=== PATIENT | male | born 1995 | race Caucasian/White ===

== ENCOUNTER 2018-06-19 09:25 | Emergency (ER) | payer OTHER, SELFPAY ==
[2018-06-19] MEDS ORDERED: Ondansetron PF 4 MG/2 ML Vial ONE (09:34)
[2018-06-19 09:58] LABS: #Basophils 0.1 thou/uL (0.0-0.2); #Eosinphils 0.3 thou/uL (0.0-0.7); #Lymphocytes 2.9 thou/uL (1.20-3.40); #Monocytes 0.7 thou/uL (0.11-0.59); #Neutrophils 6.4 thou/uL (1.40-6.50); %Basophils 1.2 % (0.0-1.0); %Eosinophils 3.2 % (0.0-10.0); %Lymphocytes 27.9 % (21.0-51.0); %Monocytes 6.4 % (0.0-10.0); %Neutrophils 61.2 % (42.0-75.0); Hemoglobin 15.4 g/dL (14.0-18.0); Mean Corpuscular HGB CONC 32.6 g/dL (32.0-36.0); Mean Corpuscular Hemoglobin 30.7 pg (27.0-31.0); Mean Corpuscular Volume 94.2 fL (78.0-98.0); Mean Platelet Volume 6.3 fL (7.4-10.4); Platelet Count 442 thou/uL (130-400); RBC Distribution Width 11.8 % (11.5-14.5); Red Blood Cell (RBC) Count 5.01 mill/uL (4.70-6.10); White Blood Cell (WBC) Count 10.5 thou/uL (4.8-10.8)
[2018-06-19 10:13] LABS: ALT (SGPT) 17 U/L (8-55); AST (SGOT) 17 U/L (5-34); Albumin 4.8 g/dL (3.5-5.0); Alkaline Phosphatase 77 U/L (40-150); Anion Gap 14 mmol/L (10-20); BUN (Urea Nitrogen) 12 mg/dL (8.9-20.6); Bilirubin, Total 0.4 mg/dL (0.2-1.2); Calc. Creatinine Clearance 0 mL/min (70-130); Calcium 10.1 mg/dL (7.8-10.44); Carbon Dioxide 25 mmol/L (22-29); Chloride 104 mmol/L (98-107); Estimated GFR-MDRD 70; Globulin 3.6 g/dL (2.4-3.5); Glucose 109 mg/dL (70-105); Lipase 43 U/L (8-78); Potassium 3.3 mmol/L (3.5-5.1); Protein, Total 8.4 g/dL (6.0-8.3); Sodium 140 mmol/L (136-145)
[2018-06-19] MEDS ORDERED: Promethazine HCl 25 MG/ML VIAL ONE (10:21)
[2018-06-19 10:38] LABS: Bilirubin Small (Negative); Blood, Urine Negative (Negative); Clarity CLEAR (Clear); Glucose, Urine (Dipstick) Negative (Negative); Leukocyte Negative (Negative); Nitrite Negative (Negative); Protein, Urine (Dipstick) Trace mg/dL (Neg-Trace); Specific Gravity, Urine 1.027 (1.002-1.036); Urobilinogen 0.2 mg/dL (0.2-1.0)
== END 2018-06-19 12:00 | disposition home or self-care (01) ==
LOC: ERS 09:25
DX: F12.188 Cannabis abuse with other cannabis-induced disorder (principal)
CPT/HCPCS: 80053; 81003; 83690; 85025; 96361; 96374; 96375; J2405; J2550

== ENCOUNTER 2018-06-19 22:04 | Emergency (ER) | payer OTHER, SELFPAY ==
[~2018-06-19 22:04] MED LIST: ISOVUE-370 76%-LOCM 1 ML ONE
[2018-06-19] MEDS ORDERED: Metoclopramide HCl 10 MG/2 ML VIAL ONE (23:18)
--- NOTE | 2018-06-19 23:51 | CT ---
CONTRAST ENHANCED CT ABDOMEN AND PELVIS 06/06 11/21 HISTORY: 22-year-old presents with a history of lower abdominal pain. Contrast enhanced CT images of the abdomen and pelvis is obtained. The lung bases are unremarkable. No evidence of free intraperitoneal air seen. The liver and spleen are unremarkable. The pancreas is unremarkable. Gallbladder and adrenal glands a re unremarkable. The kidneys are within normal limits. No dilated loops of small bowel seen. The appendix is thought to be visualized and does not appear to be inflamed. However, I cannot defini tively visualize the appendix without benefit of oral contrast. Adrenal glands and kidneys are unremarkable. No evidence of periaortic lymphadenopathy seen. No definite evidence of bowel obstruction seen. IMPRESSION: Unremarkable contrast enhanced CT of the abdomen. The appendix definitively was not visualized withou t oral contrast. POS: [facility]
== END 2018-06-20 00:27 | disposition home or self-care (01) ==
LOC: ERS 22:04
DX: R10.30 Lower abdominal pain, unspecified (principal)
CPT/HCPCS: 74177; 96365; J2765

== ENCOUNTER 2018-10-30 11:00 | Day surgery (SDC) | payer OTHER ==
[2018-10-29 10:35] VITALS: BMI 24.4
--- NOTE | 2018-10-29 13:58 | HP ---
HISTORY OF PRESENT ILLNESS: This is a 22-year-old male, comes with GI symptoms over the years. The symptoms consist of abdominal bloating, abdominal discomfort, His abdominal pain is mild. No nausea and no vomiting. The patient comes for EGD for chronic dyspepsia. ALLERGIES: NONE. SOCIAL HISTORY: The patient smokes marijuana every day. No alcohol intake. MEDICAL ILLNESSES: History of seasonal allergies and also asthma in the past. PHYSICAL EXAMINATION: GENERAL: Appears comfortable. VITAL SIGNS: Pulse is 70, blood pressure 130/70. Conjunctivae clear. CARDIOVASCULAR SYSTEM: First and second heart sounds heard. LUNGS: Clear to auscultation. ABDOMEN: Soft. No organomegaly. Abdomen is mildly tender over the epigastric area. There is no rebound or guarding. Bowel sounds are normal. ADMITTING DIAGNOSIS: Chronic dyspepsia. PLAN: EGD. Job ID: [id number]
[2018-10-30] MEDS ORDERED: Fentanyl 100 MCG/2 ML VIAL ONE (14:46)
--- NOTE | 2018-10-30 18:21 | OP ---
DATE OF PROCEDURE: 10/30/2018 PROCEDURE PERFORMED: Esophagogastroduodenoscopy with biopsy. PREOPERATIVE DIAGNOSES: Abdominal pain, dyspepsia, which is chronic in nature. The patient underwent an esophagogastroduodenoscopy. POSTOPERATIVE DIAGNOSIS: Normal esophagogastroduodenoscopy. Biopsy of the descending duodenum and also the gastric antrum and gastric body. DESCRIPTION OF PROCEDURE: The patient was placed on his left lateral position and was given sedation by Anesthesia Department. A [employer] video gastroscope under direct vision passed down the oropharynx, past the GE junction into the stomach and subsequently into the descending duodenum. The vocal cords appeared healthy. The mucosa of the esophagus appeared normal throughout. There was no esophagitis seen. The GE junction, no pathology seen. Retroflexion of scope in the stomach showed no pathology in the fundus or cardia. The gastric body, gastric antrum, incisura angularis, no pathology seen. The scope was advanced into the duodenal bulb, descending duodenum. No pathology seen. Biopsy obtained of the gastric antrum and gastric body and also from the descending duodenum. DISCHARGE PLAN: This is a 22-year-old male with chronic GI symptoms, came for EGD. He underwent EGD . He had biopsy of his duodenum and also stomach. DISCHARGE RECOMMENDATION: 1. We will start patient on Bentyl 10 mg p.o. 3 times a day. 2. Await gastric biopsy and make further recommendations. Job ID: [id number]
== END 2018-10-30 16:07 | disposition home or self-care (01) ==
LOC: SDC 11:00
PROVIDERS: ATTEND Internal Medicine Gastroenterology
PROC: 0DB98ZX Excision of Duodenum, Via Natural or Artificial Opening Endoscopic, Diagnostic (ICD-10-PCS; principal; 2018-10-30)
PROC: 0DB78ZX Excision of Stomach, Pylorus, Via Natural or Artificial Opening Endoscopic, Diagnostic (ICD-10-PCS; principal; 2018-10-30)
DX: K29.50 Unspecified chronic gastritis without bleeding (principal); B96.81 Helicobacter pylori [H. pylori] as the cause of diseases classified elsewhere; J45.909 Unspecified asthma, uncomplicated; Z79.899 Other long term (current) drug therapy
CPT/HCPCS: 88305; 88312; J3010

== ENCOUNTER 2019-03-26 08:34 | Outpatient (CLI) | payer OTHER ==
--- NOTE | 2019-03-26 09:05 | RAD ---
Small bowel follow-through CLINICAL HISTORY: Abdominal pain, vomiting, evaluation for provided history of malrotation Enteric contrast was administered orally, and subsequent radiographic imaging was acquired. The contr ast traversed the small bowel and into colon by 1 hour, 30 minutes. There are appropriate mucosal folds of the small bowel, and normal small bowel caliber is demonstrated, with transient areas of dis tention from passage of contrast. Spot imaging reveals no evidence of abnormal stricture of the small bowel. IMPRESSION: Small bowel transit time of between 1 and 1.5 hours . No acute sequela of small bowel malrotation. If there is need for evaluation of the exact location of ligamentum of Treitz, this could be performed with upper GI exam. Transcribed Date/Time: 03/26/2019 2:58 PM
== END 2019-03-26 08:35 | disposition home or self-care (01) ==
LOC: RAD 08:34
PROVIDERS: ATTEND Surgery
DX: Q43.3 Congenital malformations of intestinal fixation (principal)
CPT/HCPCS: 74250

== ENCOUNTER 2019-08-06 22:11 | Emergency (ER) | payer OTHER ==
[~2019-08-06 22:11] MED LIST changes: -ISOVUE-370 76%-LOCM 1 ML ONE; +Iopamidol-370 76% 500 ML 1 ML ONE
[2019-08-06] MEDS ORDERED: Ondansetron PF 4 MG/2 ML Vial ONE ×2 (22:48→23:29)
[2019-08-06] MEDS ORDERED: Dicyclomine 20 MG TAB ONE (22:48)
[2019-08-06 23:03] LABS: #Basophils 0.1 thou/uL (0.0-0.2); #Eosinphils 0.2 thou/uL (0.0-0.7); #Lymphocytes 2.6 thou/uL (1.20-3.40); #Monocytes 0.7 thou/uL (0.11-0.59); #Neutrophils 12.1 thou/uL (1.40-6.50); %Basophils 0.7 % (0.0-1.0); %Lymphocytes 16.7 % (21.0-51.0); %Monocytes 4.2 % (0.0-10.0); %Neutrophils 77.3 % (42.0-75.0); Hemoglobin 16.6 g/dL (14.0-18.0); Mean Corpuscular HGB CONC 33.9 g/dL (32.0-36.0); Mean Corpuscular Hemoglobin 30.9 pg (27.0-31.0); Mean Corpuscular Volume 91.1 fL (78.0-98.0); Mean Platelet Volume 6.8 fL (7.4-10.4); Platelet Count 300 thou/uL (130-400); Red Blood Cell (RBC) Count 5.36 mill/uL (4.70-6.10); White Blood Cell (WBC) Count 15.7 thou/uL (4.8-10.8)
[2019-08-06 23:24] LABS: ALT (SGPT) 17 U/L (8-55); AST (SGOT) 21 U/L (5-34); Acetaminophen Less than 6.0 mcg/mL (10.0-30.0); Albumin 5.3 g/dL (3.5-5.0); Alcohol 23 mg/dL (Less than 10); Alkaline Phosphatase 75 U/L (40-110); Anion Gap 17 mmol/L (10-20); BUN (Urea Nitrogen) 15 mg/dL (8.9-20.6); Bilirubin, Total 0.2 mg/dL (0.2-1.2); Calc. Creatinine Clearance 0 mL/min (70-130); Calcium 10.3 mg/dL (7.8-10.44); Carbon Dioxide 27 mmol/L (22-29); Chloride 102 mmol/L (98-107); Estimated GFR-MDRD 81; Globulin 3.3 g/dL (2.4-3.5); Glucose 103 mg/dL (70-105); Potassium 3.8 mmol/L (3.5-5.1); Protein, Total 8.6 g/dL (6.0-8.3); Salicylate Less than 8.0 mg/dL (15.0-30.0); Sodium 142 mmol/L (136-145)
--- NOTE | 2019-08-06 23:28 | CT ---
EXAM: CT abdomen and pelvis with IV contrast PROVIDED CLINICAL HISTORY: Left lower quadrant pain COMPARISON: 06/19/2019 FINDINGS: The visualized lung bases are free of significant opacity. The solid abdominal organs demonstrate an unremarkable CT appearance. There is no bowel dilatation, inflammatory fat stranding, free fluid or free air apparent. There is n o evidence for appendicitis. Stable mild reticulation of the subcutaneous adipose layer subjacent to the right aspect of the cleft. There is diffuse prominence of the transverse and descending colon mucosa. No regional lymph node enlargement apparent. The regional major vascular structures appear unremarkab le. The osseous structures demonstrate no concerning lytic or blastic lesions. IMPRESSION: Mural thickening versus nondistention of the transverse and descending colon. Correlate with concerns for colitis.
[2019-08-06] MEDS ORDERED: Ketorolac Tromethamine 30 MG/ML VIAL ONE (23:29)
== END 2019-08-07 00:55 | disposition home or self-care (01) ==
LOC: ERS 22:11
DX: K52.9 Noninfective gastroenteritis and colitis, unspecified (principal); R11.2 Nausea with vomiting, unspecified; F41.9 Anxiety disorder, unspecified; F32.9 Major depressive disorder, single episode, unspecified
CPT/HCPCS: 74177; 80053; 80307; 83690; 85025; 93005; 96361; 96374; 96375; 96376; J1885; J2405; Q9967

== ENCOUNTER 2021-06-15 15:32 | Emergency (ER) | payer OTHER ==
[2021-06-15] MEDS ORDERED: Ibuprofen 800 MG TAB ONE (16:56)
== END 2021-06-15 17:14 | disposition home or self-care (01) ==
LOC: ERS 15:32
DX: M21.41 Flat foot [pes planus] (acquired), right foot (principal); M77.9 Enthesopathy, unspecified
CPT/HCPCS: 99283

== ENCOUNTER 2023-08-31 03:23 | Emergency (ER) | payer OTHER, SELFPAY ==
[2023-08-31 04:05] LABS: Bacteria/HPF None Seen HPF (None Seen); Bilirubin Negative (Negative); Blood, Urine Negative (Negative); CAUTI Indications for Culture Dysuria,urgency,freq; Calcium Oxalate Crystals 3+ HPF (None Seen); Clarity Clear (Clear); Glucose, Urine (Dipstick) Normal (Negative); Ketone, Urine Negative (Negative); Leukocyte Negative Leu/uL (Negative); Nitrite Negative (Negative); Protein, Urine (Dipstick) 100 mg/dL (Neg-Trace); RBC/HPF 0-3 HPF (0-3); Squamous Epithelial None Seen HPF (0-3); Urobilinogen Normal mg/dL (Less than 2); WBC/HPF 0-3 HPF (0-3)
[2023-08-31 04:06] LABS: Urine Culture Reflex No No
== END 2023-08-31 06:58 | disposition home or self-care (01) ==
LOC: ERS 03:23
DX: R30.0 Dysuria (principal); F17.290 Nicotine dependence, other tobacco product, uncomplicated
CPT/HCPCS: 74176; 81001